=== PATIENT | female | born 1970 | race African-American/Black ===

== ENCOUNTER → 2017-04-19 | Outpatient (CLI) | payer OTHER | LOC: CAT 09:48 | DX: R31.9 Hematuria, unspecified (principal); R10.9 Unspecified abdominal pain ==

== ENCOUNTER → 2017-04-29 | Outpatient (CLI) | payer OTHER | LOC: ULTRA 18:14 | DX: N83.202 Unspecified ovarian cyst, left side (principal); N85.9 Noninflammatory disorder of uterus, unspecified ==